=== PATIENT | female | born 1970 | race Two or more races ===

== ENCOUNTER 2019-03-12 15:28 | Emergency (ER) | payer OTHER ==
[~2019-03-12] VITALS: Ht 167.6 cm; Wt 57.3 kg
[2019-03-12 15:33] VITALS: BP 152/77
[2019-03-12] MEDS ORDERED: HYD25 PO (15:50)
[2019-03-12] MEDS ORDERED: LORazepam 1 MG TABLET PO ONE (17:00)
[2019-03-12 17:10] LABS: BASOPHILS % (AUTO) 0.2 % (0.0-2.0); EOSINOPHILS % (AUTO) 0.1 % (1.0-6.0); HEMATOCRIT 46.5 % (36-46); HEMOGLOBIN 15.6 g/dL (12.0-16.0); LYMPHOCYTES % (AUTO) 9.2 % (22.0-44.0); MEAN CORPUSCULAR HEMOGLOBIN 28.4 pg (26.0-34.0); MEAN CORPUSCULAR HGB CONC 33.5 G/dL (31.0-37.0); MEAN CORPUSCULAR VOLUME 85 fL (80-100); MONOCYTES # (AUTO) 0.5 K/uL (0.1-1.0); MONOCYTES % (AUTO) 4.4 % (2.0-9.0); NEUTROPHILS # (AUTO) 9.7 K/uL (1.8-7.7); PLATELET COUNT (AUTO) 746 K/uL (150-450); RED BLOOD CELL COUNT(AUTO) 5.49 MIL/uL (4.00-5.20); RED CELL DISTRIBUTION WIDTH 14.9 % (11.5-14.5)
[2019-03-12 17:12] LABS: NEUTROPHILS % (AUTO) 86.1 % (40.0-70.0)
[2019-03-12 17:19] LABS: ANION GAP 12 mmol/L (8-16); CALCIUM, TOTAL 9.3 mg/dL (8.8-10.5); CARBON DIOXIDE 23 mmol/L (22-29); CHLORIDE 103 mmol/L (98-107); GLOMERULAR FILTR. RATE CALC > 60 mL/min (>60); GLUCOSE,RANDOM 117 mg/dL (70-110); SODIUM SERUM 138 mmol/L (136-145); UREA NITROGEN, BLOOD 13 mg/dL (7-18)
[2019-03-12 17:26] LABS: ALANINE AMINOTRANSFERASE 19 U/L (12-78); ALBUMIN 4.4 g/dL (3.4-5.0); ALKALINE PHOSPHATASE 59 U/L (46-116); ASPARTATE AMINOTRANSFERASE 14 U/L (15-37); BILIRUBIN,TOTAL 0.4 mg/dL (0.1-1.0)
[2019-03-12 17:31] LABS: PLATELET MORPHOLOGY COMMENT INCREASED
[2019-03-12 17:57] LABS: HCG,QUANTITATIVE < 1 mIU/mL (0-6); THYROID STIMULATING HORMONE 0.85 uIU/mL (0.36-3.74)
== END 2019-03-12 18:51 | disposition home or self-care (01) ==
LOC: EMS 15:29
DX: F41.0 Panic disorder [episodic paroxysmal anxiety] (principal)
CPT/HCPCS: 84443; 93005

== ENCOUNTER 2019-12-13 12:53 | Emergency (ER) | payer OTHER ==
[~2019-12-13] VITALS: Ht 167.6 cm; Wt 56.8 kg
[~2019-12-13 12:53] MED LIST: HYD25 PO
[2019-12-13 13:00] VITALS: BP 107/75
[2019-12-13] MEDS ORDERED: ASCO500 PO (13:00)
[2019-12-13] MEDS ORDERED: ASPI-728 PO (13:00)
[2019-12-13] MEDS ORDERED: MAGOX PO (13:00)
[2019-12-13] MEDS ORDERED: ACET-66 PO (13:00)
[2019-12-13] MEDS ORDERED: SODIUM CHLORIDE 0.9% 1,000 ML ONE (14:56)
== END 2019-12-13 15:48 | disposition home or self-care (01) ==
LOC: EMS 12:59
DX: S60.211A Contusion of right wrist, initial encounter (principal); Z79.899 Other long term (current) drug therapy; W22.8XXA Striking against or struck by other objects, initial encounter; Y93.89 Activity, other specified; Y92.89 Other specified places as the place of occurrence of the external cause; Y99.8 Other external cause status
CPT/HCPCS: 29125; 73110; 99283; J7030